=== PATIENT | male | born 1955 | race Caucasian/White ===

== ENCOUNTER 2021-06-01 13:29 | Inpatient (IN) | payer BC ==
--- NOTE | 2021-06-01 13:33 | EDM.PDOC ---
ED HPI GENERAL MEDICAL PROBLEM - General Chief Complaint: Cardiovascular Problem Stated Complaint: PALPITATIONS Time Seen by Provider: 06/01/21 13:33 Source of Information: Reports: Patient History Limitations: Reports: No Limitations - History of Present Illness INITIAL COMMENTS - FREE TEXT/NARRATIVE: 65 YO WM PRESENTS TO ER WITH ELEVATED HEART RATE WHICH WAS FOUND ON EXAM PRIOR TO DENTAL EXTRACTION THIS AM IN [place]. PT WAS SCHEDULED TO SEE A [facility]OLT PROVIDER WHILE IN [place] BUT LEFT WITHOUT BEING SEEN HE STATES HE'S ASYMPTOMATIC. PT DENIES CHEST PAIN, SHORTNESS OF BREATH, NAUSEA/VOMITING, DIAPHORESIS, OR DIZZINESS. PT DENIES FEVER/CHILLS AND STATES HE FEELS GREAT. PT WITH HISTORY OF ELECTROCARDIOVERSION 3 YEARS AGO DUE TO AN ACCELERATED HEART RATE. PT DENIES ANY RATE CONTROLLING MEDICATIONS. PT STATES HE TAKES LISINOPRIL 10MG DAILY FOR BLOOD PRESSURE. Onset: Today Location: Reports: Generalized Improves with: Reports: None Worsens with: Reports: None Associated Symptoms: Reports: No Other Symptoms - Related Data Allergies Allergy/AdvReac Type Severity Reaction Status Date / Time No Known Allergies Allergy Verified 06/01/21 14:09 Home Meds: Home Meds Lisinopril 10 mg PO DAILY 08/14/16 [History] Past Medical History HEENT History: Reports: Hard of Hearing, Impaired Vision, Other (See Below) Other HEENT History: No hearing aide therapy, reading glasses Cardiovascular History: Reports: None, Hypertension. Denies: Afib, Aneurysm, Arrhythmia, Blood Clots/VTE/DVT, CAD, Heart Failure, Heart Murmur, High Cholesterol, PA, PVD, Syncope Respiratory History: Reports: None. Denies: Asthma, COPD, Intubation, Previous, PE, Pneumothorax, Sleep Apnea, TB Gastrointestinal History: Reports: None. Denies: Celiac Disease, Cholelithiasis, Chronic Constipation, Gastritis, GERD, GI Bleed, Hepatitis, Hiatal Hernia, Inflammatory Bowel Disease, Jaundice, Pancreatitis, PUD Genitourinary History: Reports: None. Denies: BPH, Chronic Renal Insuffiency, Renal Calculus, STD, Urinary Incontinence, UTI, Recurrent Musculoskeletal History: Reports: Arthritis, Osteoarthritis. Denies: Amputation, Back Pain, Chronic, Fracture, Gout, Neck Pain, Chronic, RA, SLE Neurological History: Reports: Other (See Below) Other Neuro History: Resting tremor mostly with the left hand Psychiatric History: Reports: None. Denies: Abuse, Victim of, ADD, ADHD, Anxiety, Depression, Panic Attack, Psych Hospitalization(s), PTSD, Suicide Attempt, Suicidal Ideation Endocrine/Metabolic History: Reports: None. Denies: Diabetes, Type I, Diabetes, Type II, Hypothyroidism, IDDM Hematologic History: Reports: None. Denies: Anemia, Blood Transfusion(s), Iron Deficiency Immunologic History: Reports: None. Denies: AIDS, HIV, SLE Oncologic (Cancer) History: Reports: None. Denies: Basal Cell Carcinoma, Hodgkin's Lymphoma, Leukemia, Lymphoma, Malignant Melanoma, Non-Hodgkin's Lymphoma Dermatologic History: Reports: None. Denies: Eczema, Psoriasis - Infectious Disease History Infectious Disease History: Reports: Chicken Pox, Measles, Mumps - Past Surgical History HEENT Surgical History: Reports: Oral Surgery, Other (See Below) Male Surgical History: Reports: Circumcision, Other (See Below) Musculoskeletal Surgical History: Reports: Arthroscopic Knee, Other (See Below) - Past Imaging History Past Imaging History: Reports: MRI (MRI of the left knee in July 2015) Social & Family History - Family History HEENT: Reports: Impaired Vision, Macular Degeneration, Other (See Below) Other HEENT Family History: Mother with macular degeneration Cardiac: Reports: CAD, Heart Murmur, High Cholesterol, Hypertension, PA, Other (See Below) Other Cardiac Family History: Maternal grandmother with fatal PA at age 63, father with fatal unknown type of valvular disease at age 89, mother with hypertension and hyperlipidemia Respiratory: Reports: None. Denies: Asthma, COPD, PE, Pneumothorax, Sleep Apnea GI: Reports: None. Denies: Celiac Disease, Cholelithiasis, Chronic Constipation, Chronic Diarrhea, Colon Polyps, Diverticulitis, GERD, GI bleed, Inflammatory Bowel Disease, Irritable Bowel Syndrome, PUD : Reports: Dialysis, Renal Disease/Insufficiency, Other (See Below) Other Family History: Father with renal insufficiency in his 80s and refused dialysis OBGYN: Reports: Dysfunctional uterine bleeding, Endometriosis, Other (See Below) Other OBGYN Family History: Daughter with hypermenorrhea, Sister with endometriosis Musculoskeletal: Reports: Fibromyalgia. Denies: Arthritis, Gout, Osteoarthri tis, RA, SLE Neurological: Reports: None. Denies: Alzheimers Disease, CVA, Dementia, Parkinson's, Seizure, TIA Psychiatric: Reports: Anxiety, Depression, Other (See Below) Other Psychiatric Family History: Sister with anxiety depression disorder with DIRECTOR [employer] therapy Hematologic: Reports: Anemia, Other (See Below) Other Hematologic Family History: Daughter with iron deficiency anemia secondary to her hypermenorrhea which did require transfusion Immunologic: Reports: None. Denies: AIDS, HIV, Immunosuppression, SLE Dermatologic: Reports: None. Denies: Eczema, Psoriasis Oncologic: Reports: None. Denies: Cervix, Hodgkin's Lymphoma, Leukemia, Lymphoma, Non-Hodgkin's Lymphoma, Prostate, Skin - Caffeine Use Caffeine Use: Reports: Soda (1/3 can of soda 2 times per week). Denies: Coffee, Energy Drinks, Tea - Living Situation & Occupation Living situation: Reports: , with Family Occupation: Employed ED ROS GENERAL - Review of Systems Review Of Systems: See Below Constitutional: Reports: No Symptoms HEENT: Reports: No Symptoms Respiratory: Reports: No Symptoms Cardiovascular: Reports: Blood Pressure Problem. Denies: Chest Pain, Dyspnea on Exertion, Edema, Lightheadedness, Palpitations, Syncope Endocrine: Reports: No Symptoms GI/Abdominal: Reports: No Symptoms : Reports: No Symptoms Musculoskeletal: Reports: No Symptoms Skin: Reports: No Symptoms Neurological: Reports: No Symptoms Psychiatric: Reports: No Symptoms Hematologic/Lymphatic: Reports: No Symptoms Immunologic: Reports: No Symptoms ED EXAM, GENERAL - Physical Exam Exam: See Below Exam Limited By: No Limitations General Appearance: Alert, WD/WN, No Apparent Distress Head: Atraumatic, Normocephalic Neck: Normal Inspection, Supple, Non-Tender, Full Range of Motion Respiratory/Chest: No Respiratory Distress, Lungs Clear, Normal Breath Sounds, No Accessory Muscle Use, Chest Non-Tender Cardiovascular: Normal Peripheral Pulses, Regular Rate, Rhythm, No Edema, No Gallop, No JVD, No Rub, Tachycardia, Systolic Murmur GI/Abdominal: Normal Bowel Sounds, Soft, Non-Tender, No Organomegaly, No Distention, No Abnormal Bruit, No Mass Back Exam: Normal Inspection, Full Range of Motion, NT Extremities: Normal Inspection, Normal Range of Motion, Non-Tender, Normal Capillary Refill, No Pedal Edema Neurological: Alert, Oriented, CN II-XII Intact, Normal Cognition, Normal Gait, Normal Reflexes, No Motor/Sensory Deficits Psychiatric: Normal Affect, Normal Mood Skin Exam: Warm, Dry, Intact, Normal Color, No Rash Lymphatic: No Adenopathy #1 Interpretation EKG Date: 06/01/21 Time: 13:39 Rhythm: NSR Rate (Beats/Min): 146 [place]: LAD-Left [place] Deviation QRS: RBBB QT: Normal #2 Interpretation EKG Date: 06/01/21 Time: 15:34 Rhythm: A-Flutter Rate (Beats/Min): 72 [place]: LAD-Left [place] Deviation QRS: RBBB ST-T: Normal QT: Normal Course - Vital Signs Last Recorded V/S: Last Vital Signs Temp 98.0 F 06/01/21 14:06 Pulse 72 06/01/21 15:47 Resp 16 06/01/21 15:47 BP 118/87 06/01/21 15:47 Pulse Ox 96 06/01/21 15:47 - Orders/Labs/Meds Orders: Active Orders 24 hr Category Date Time Status Cardiac Monitoring [RC] . DIRECTED Care 06/01/21 13:31 Active EKG Documentation Completion [RC] ASDIRECTED Care 06/01/21 13:32 Active EKG Documentation Completion [RC] ASDIRECTED Care 06/01/21 15:48 Active Peripheral IV Care [RC] . DIRECTED Care 06/01/21 13:32 Active Sodium Chloride 0.9% [Saline Flush] Med 06/01/21 13:31 Active 10 ml FLUSH Q8HR PRN Peripheral IV Insertion Adult [OM.PC] Routine Oth 06/01/21 13:31 Ordered EKG 12 Lead [EK] Stat Ther 06/01/21 13:31 Ordered EKG 12 Lead [EK] Stat Ther 06/01/21 15:47 Ordered Medication Orders Sodium Chloride (Sodium Chloride 0.9% 10 Ml Syringe) 10 ml FLUSH Q8HR PRN PRN Reason: keep vein open Labs: Laboratory Tests 06/01/21 06/01/21 06/01/21 Range/Units 13:50 13:50 13:50 WBC 6.63 (5.00-10.00) 10^3/uL RBC 4.80 (4.50-6.00) 10^6/uL Hgb 17.1 H (13.0-17.0) g/dL Hct 49.7 (40.0-52.0) % MCV 103.5 H (82.0-92.0) fL MCH 35.6 H (27.0-31.0) pg MCHC 34.4 (32.0-36.0) g/dL RDW 12.2 (11.5-14.5) % Plt Count 122 L (150-400) 10^3/uL MPV 10.0 (7.4-10.4) fL Immature Gran % (Auto) 0.2 (0.0-5.0) % Neut % (Auto) 74.2 H (50.0-70.0) % Lymph % (Auto) 16.7 L (20.0-40.0) % Nuckolls % (Auto) 8.1 H (2.0-8.0) % Eos % (Auto) 0.3 L (1.0-3.0) % Baso % (Auto) 0.5 (0.0-1.0) % Neut # (Auto) 4.92 (2.50-7.00) 10^3/uL Lymph # (Auto) 1.11 (1.00-4.00) 10^3/uL [place]olls # (Auto) 0.54 (0.10-0.80) 10^3/uL Eos # (Auto) 0.02 L (0.10-0.30) 10^3/uL Baso # (Auto) 0.03 (0.00-0.10) 10^3/uL Immature Gran # (Auto) 0.01 (0.00-0.50) 10^3/uL Sodium 138 (136-145) mmol/L Potassium 4.5 (3.5-5.1) mmol/L Chloride 103 (98-107) mmol/L Carbon Dioxide 23.9 (21.0-32.0) mmol/L Anion Gap 15.6 H (5-15) mmol/L BUN 21 H (7-18) mg/dL Creatinine 0.97 (0.51-1.17) mg/dL Est Cr Clr Drug Dosing 70.98 mL/min Estimated GFR (MDRD) > 60 mL/min Glucose 108 (70-140) mg/dL Lactic Acid (0.4-2.0) mmol/L Calcium 8.4 L (8.7-10.3) mg/dL Magnesium 1.9 (1.8-2.4) mg/dL Total Bilirubin 1.1 H (0.2-1.0) mg/dL AST 21 (15-37) U/L ALT 30 (14-63) U/L Alkaline Phosphatase 59 (46-116) U/L Creatine Kinase 77 (26-276) U/L CK-MB (CK-2) 1.61 (0.00-3.60) ng/mL Troponin I High Sens 6.200 (0-76.000) pg/mL B-Natriuretic Peptide 157 H (0-100) pg/mL Total Protein 7.7 (6.4-8.2) g/dL Albumin 3.73 (3.40-5.00) g/dL 06/01/21 Range/Units 13:50 WBC (5.00-10.00) 10^3/uL RBC (4.50-6.00) 10^6/uL Hgb (13.0-17.0) g/dL Hct (40.0-52.0) % MCV (82.0-92.0) fL MCH (27.0-31.0) pg MCHC (32.0-36.0) g/dL RDW (11.5-14.5) % Plt Count (150-400) 10^3/uL MPV (7.4-10.4) fL Immature Gran % (Auto) (0.0-5.0) % Neut % (Auto) (50.0-70.0) % Lymph % (Auto) (20.0-40.0) % [place]olls % (Auto) (2.0-8.0) % Eos % (Auto) (1.0-3.0) % Baso % (Auto) (0.0-1.0) % Neut # (Auto) (2.50-7.00) 10^3/uL Lymph # (Auto) (1.00-4.00) 10^3/uL [place]olls # (Auto) (0.10-0.80) 10^3/uL Eos # (Auto) (0.10-0.30) 10^3/uL Baso # (Auto) (0.00-0.10) 10^3/uL Immature Gran # (Auto) (0.00-0.50) 10^3/uL Sodium (136-145) mmol/L Potassium (3.5-5.1) mmol/L Chloride (98-107) mmol/L Carbon Dioxide (21.0-32.0) mmol/L Anion Gap (5-15) mmol/L BUN (7-18) mg/dL Creatinine (0.51-1.17) mg/dL Est Cr Clr Drug Dosing mL/min Estimated GFR (MDRD) mL/min Glucose (70-140) mg/dL Lactic Acid 0.9 (0.4-2.0) mmol/L Calcium (8.7-10.3) mg/dL Magnesium (1.8-2.4) mg/dL Total Bilirubin (0.2-1.0) mg/dL AST (15-37) U/L ALT (14-63) U/L Alkaline Phosphatase (46-116) U/L Creatine Kinase (26-276) U/L CK-MB (CK-2) (0.00-3.60) ng/mL Troponin I High Sens (0-76.000) pg/mL B-Natriuretic Peptide (0-100) pg/mL Total Protein (6.4-8.2) g/dL Albumin (3.40-5.00) g/dL Meds: Medications Generic Name Dose Route Start Last Admin Trade Name Freq PRN Reason Stop Dose Admin Sodium Chloride 10 ml 06/01/21 13:31 Sodium Chloride 0.9% 10 Ml Syringe FLUSH Q8HR PRN keep vein open Discontinued Medications Generic Name Dose Route Start Last Admin Trade Name Freq PRN Reason Stop Dose Admin Diltiazem HCl 20 mg 06/01/21 15:09 06/01/21 15:23 Diltiazem 25 Mg/5 Ml Sdv IVPUSH 06/01/21 15:10 20 mg ONETIME ONE Administration Sodium Chloride 1,000 mls @ 999 mls/hr 06/01/21 13:47 06/01/21 14:05 Normal Saline IV 06/01/21 14:47 999 mls/hr .BOLUS ONE Administration Metoprolol Tartrate 5 mg 06/01/21 14:31 06/01/21 14:52 Metoprolol Tartrate 5 Mg/5 Ml Sdv IVPUSH 06/01/21 14:32 5 mg ONETIME ONE Administration - Radiology Interpretation Free Text/Narrative:: CXR-NAD Departure - Departure Time of Disposition: 15:54 Disposition: Admitted As Inpatient 66 Clinical Impression: Tachycardia with heart rate 141-160 beats per minute, Atrial flutter with controlled response Hypertension Qualifiers: Hypertension type: unspecified Qualified Code(s): I10 - Essential (primary) hypertension Referrals: Emili Blas MD [Primary Care Provider] - Forms: ED Department Discharge Sepsis Event Note (ED) - Focused Exam Vital Signs: Vital Signs Temp Pulse Pulse Resp BP BP Pulse Ox 06/01/21 15:47 72 16 118/87 96 06/01/21 15:31 72 12 119/86 97 06/01/21 15:26 142 H 14 144/112 H 95 06/01/21 14:59 143 H 18 150/126 H 97 06/01/21 14:52 145 H 155/121 H 06/01/21 14:50 144 H 16 160/127 H 96 06/01/21 14:15 147 H 14 154/122 H 96 06/01/21 14:06 98.0 F 149 H 12 170/125 H 100 - My Orders Last 24 Hours: My Active Orders 06/01/21 13:31 Cardiac Monitoring [RC] . DIRECTED Sodium Chloride 0.9% [Saline Flush] 10 ml FLUSH Q8HR PRN Peripheral IV Insertion Adult [OM.PC] Routine EKG 12 Lead [EK] Stat 06/01/21 13:32 EKG Documentation Completion [RC] ASDIRECTED Peripheral IV Care [RC] . DIRECTED 06/01/21 15:47 EKG 12 Lead [EK] Stat 06/01/21 15:48 EKG Documentation Completion [RC] ASDIRECTED - Assessment/Plan Last 24 Hours: My Active Orders 06/01/21 13:31 Cardiac Monitoring [RC] . DIRECTED Sodium Chloride 0.9% [Saline Flush] 10 ml FLUSH Q8HR PRN Peripheral IV Insertion Adult [OM.PC] Routine EKG 12 Lead [EK] Stat 06/01/21 13:32 EKG Documentation Completion [RC] ASDIRECTED Peripheral IV Care [RC] . DIRECTED 06/01/21 15:47 EKG 12 Lead [EK] Stat 06/01/21 15:48 EKG Documentation Completion [RC] ASDIRECTED Assessment:: 1. ASYMPTOMATIC SINUS TACHYCARDIA/ATRIAL FLUTTER 2. ACCELERATED HYPERTENSION-IMPROVED AFTER CARDIZEM Plan: 1. ADMIT TO MEDICINE- [facility] ACCEPTING @4030 2. SUPPORTIVE CARE 3. TELEMETRY
[2021-06-01] MEDS ORDERED: Sodium Chloride 0.9% 1,000 ML IV ONE (13:47)
--- NOTE | 2021-06-01 13:59 | CR ---
[id number] RAD/RAD Chest PA or AP 1V EXAM: RAD Chest PA or AP 1V INDICATION: CHEST PAIN. COMPARISON: None. DISCUSSION/IMPRESSION: Cardiomediastinal silhouette is normal in size and contour. Lungs are clear. No pleural effusion or pneumothorax. Adan Escoto MD 06/01/21 [id number] Thank you for allowing us to participate in the care of your patient.
[2021-06-01] MEDS ORDERED: Metoprolol Tartrate 5 MG/5 ML SDV IVPUSH ONE ×3 (14:31→20:08)
[2021-06-01 14:32] LABS: ANION GAP 15.6 mmol/L (5-15); CHLORIDE,CL 103 mmol/L (98-107); SODIUM,NA 138 mmol/L (136-145)
[2021-06-01] MEDS ORDERED: Diltiazem 25 MG/5 ML SDV IVPUSH ONE (15:09)
--- NOTE | 2021-06-01 20:14 | PCM.HP.2 ---
H&P History of Present Illness - General Date of Service: 06/01/21 Admit Problem/Dx: Admission Diagnosis/Problem Admission Diagnosis/Problem Atrial flutter with rapid ventricular response Source of Information: Patient - History of Present Illness Initial Comments - Free Text/Narative: 65 year old male admitted from the ED for asymptomatic atrial flutter with RVR. Patient had been to the dentist for a tooth extraction and was noted to have tachycardia. His tooth was pulled and then he was told to go to the ED in [place]. Patient reports his phone and he forgot the directions and came back home and then to the ED in [place]. He denies CP, SOB, edema or light headedness. - Related Data Allergies/Adverse Reactions: Allergies Allergy/AdvReac Type Severity Reaction Status Date / Time No Known Allergies Allergy Verified 06/01/21 14:09 Home Medications: Home Meds Lisinopril 10 mg PO DAILY 08/14/16 [History] Past Medical History HEENT History: Reports: Hard of Hearing, Impaired Vision, Other (See Below) Other HEENT History: No hearing aide therapy, reading glasses Cardiovascular History: Reports: None, Hypertension Respiratory History: Reports: None Gastrointestinal History: Reports: None Genitourinary History: Reports: None Musculoskeletal History: Reports: Arthritis, Osteoarthritis Neurological History: Reports: Other (See Below) Other Neuro History: Resting tremor mostly with the left hand Psychiatric History: Reports: None Endocrine/Metabolic History: Reports: None Hematologic History: Reports: None Immunologic History: Reports: None Oncologic (Cancer) History: Reports: None Dermatologic History: Reports: None - Infectious Disease History Infectious Disease History: Reports: Chicken Pox, Measles, Mumps, Shingles - Past Surgical History Head Surgeries/Procedures: Reports: None HEENT Surgical History: Reports: Oral Surgery, Other (See Below) Other HEENT Surgeries/Procedures: Extractions of teeth 06/01/21 Cardiovascular Surgical History: Reports: None Respiratory Surgical History: Reports: None GI Surgical History: Reports: None Male Surgical History: Reports: Circumcision, Other (See Below) Other Male Surgeries/Procedures: Circumcision as an infant Endocrine Surgical History: Reports: None Musculoskeletal Surgical History: Reports: Arthroscopic Knee, Other (See Below) Other Musculoskeletal Surgeries/Procedures:: Meniscal repair of the left knee on 02/08/16 Oncologic Surgical History: Reports: None Dermatological Surgical History: Reports: None - Past Imaging History Past Imaging History: Reports: MRI (MRI of the left knee in July 2015) Social & Family History - Family History HEENT: Reports: Impaired Vision, Macular Degeneration, Other (See Below) Other HEENT Family History: Mother with macular degeneration Cardiac: Reports: CAD, Heart Murmur, High Cholesterol, Hypertension, [place], Other (See Below) Other Cardiac Family History: Maternal grandmother with fatal TX at age 63, father with fatal unknown type of valvular disease at age 89, mother with hypertension and hyperlipidemia Respiratory: Reports: None GI: Reports: None : Reports: Dialysis, Renal Disease/Insufficiency, Other (See Below) Other Family History: Father with renal insufficiency in his 80s and refused dialysis OBGYN: Reports: Dysfunctional uterine bleeding, Endometriosis, Other (See Below) Other OBGYN Family History: Daughter with hypermenorrhea, Sister with endometriosis Musculoskeletal: Reports: Fibromyalgia Neurological: Reports: None Psychiatric: Reports: Anxiety, Depression, Other (See Below) Other Psychiatric Family History: Sister with anxiety depression disorder with HEATING AND VENTILATING DRAFTER therapy Hematologic: Reports: Anemia, Other (See Below) Other Hematologic Family History: Daughter with iron deficiency anemia secondary to her hypermenorrhea which did require transfusion Immunologic: Reports: None Dermatologic: Reports: None Oncologic: Reports: None - Tobacco Use Tobacco Use Status *Q: Current Status Unknown - Caffeine Use Caffeine Use: Reports: None - Alcohol Use Days Per Week of Alcohol Use: 1 Number of Drinks Per Day: 3 Total Drinks Per Week: 3 - Recreational Drug Use Recreational Drug Use: No - Living Situation & Occupation Living situation: Reports: , with Family Occupation: Employed H&P Review of Systems - Review of Systems: Review Of Systems: See Below General: Denies: Fever, Chills, Weakness, Fatigue, Decreased Appetite HEENT: Reports: Glasses. Denies: Dysphasia, Headaches, Sinus Congestion, Sore Throat Pulmonary: Denies: Shortness of Breath, Wheezing, Cough Cardiovascular: Denies: Chest Pain, Palpitations, Edema Gastrointestinal: Denies: Abdominal Pain, Black Stool, Bloody Stool, Constipation, Diarrhea, Nausea, Vomiting Genitourinary: Denies: Dysuria, Frequency, Urgency, Hematuria Musculoskeletal: Denies: Shoulder Pain, Back Pain, Joint Swelling Skin: Denies: Bruising, Rash, Wound Psychiatric: Denies: Confusion, Depression, Anxiety Neurological: Denies: Confusion, Headache, Numbness, Tingling, Trouble Speaking, Difficulty Walking Exam - Exam Exam: See Below - Vital Signs Vital Signs: Last Vital Signs Temp 36.6 C 06/01/21 19:00 Pulse 133 H 06/01/21 19:00 Resp 20 06/01/21 19:00 BP 182/125 H 06/01/21 19:00 Pulse Ox 94 L 06/01/21 19:00 Weight: 135.76 kg - Exam Physical Exam Comments:: GENERAL: Well-appearing adult in no acute distress. HEENT: Normocephalic, atraumatic. Conjunctiva clear. Nares patent without discharge. Mucous membranes moist, posterior pharynx unremarkable. NECK: Supple, no masses. CV: Irregular tachycardic rate and rhythm, no murmurs, rubs, or gallops. 2+ radial pulses. PULMONARY: Normal effort, clear to auscultation bilaterally, no wheezes, rales, or rhonchi. ABDOMEN: Positive bowel sounds, soft, nontender, nondistended. EXTREMITIES: Trace bilateral lower extremity edema, no cyanosis or clubbing. MUSCULOSKELETAL: Moves all extremities well. NEUROLOGICAL: No obvious deficits. DERMATOLOGIC: No rashes or suspicious lesions in exposed areas. PSYCHIATRIC: Alert, interactive, appropriate affect. - Patient Data Lab Results Last 24 hrs: Laboratory Results - last 24 hr 06/01/21 06/01/21 06/01/21 Range/Units 13:50 13:50 13:50 WBC 6.63 (5.00-10.00) 10^3/uL RBC 4.80 (4.50-6.00) 10^6/uL Hgb 17.1 H (13.0-17.0) g/dL Hct 49.7 (40.0-52.0) % MCV 103.5 H (82.0-92.0) fL MCH 35.6 H (27.0-31.0) pg MCHC 34.4 (32.0-36.0) g/dL RDW 12.2 (11.5-14.5) % Plt Count 122 L (150-400) 10^3/uL MPV 10.0 (7.4-10.4) fL Immature Gran % (Auto) 0.2 (0.0-5.0) % Neut % (Auto) 74.2 H (50.0-70.0) % Lymph % (Auto) 16.7 L (20.0-40.0) % [place] % (Auto) 8.1 H (2.0-8.0) % Eos % (Auto) 0.3 L (1.0-3.0) % Baso % (Auto) 0.5 (0.0-1.0) % Neut # (Auto) 4.92 (2.50-7.00) 10^3/uL Lymph # (Auto) 1.11 (1.00-4.00) 10^3/uL [place] # (Auto) 0.54 (0.10-0.80) 10^3/uL Eos # (Auto) 0.02 L (0.10-0.30) 10^3/uL Baso # (Auto) 0.03 (0.00-0.10) 10^3/uL Immature Gran # (Auto) 0.01 (0.00-0.50) 10^3/uL Sodium 138 (136-145) mmol/L Potassium 4.5 (3.5-5.1) mmol/L Chloride 103 (98-107) mmol/L Carbon Dioxide 23.9 (21.0-32.0) mmol/L Anion Gap 15.6 H (5-15) mmol/L BUN 21 H (7-18) mg/dL Creatinine 0.97 (0.51-1.17) mg/dL Est Cr Clr Drug Dosing 70.98 mL/min Estimated GFR (MDRD) > 60 mL/min Glucose 108 (70-140) mg/dL Lactic Acid (0.4-2.0) mmol/L Calcium 8.4 L (8.7-10.3) mg/dL Magnesium 1.9 (1.8-2.4) mg/dL Total Bilirubin 1.1 H (0.2-1.0) mg/dL AST 21 (15-37) U/L ALT 30 (14-63) U/L Alkaline Phosphatase 59 (46-116) U/L Creatine Kinase 77 (26-276) U/L CK-MB (CK-2) 1.61 (0.00-3.60) ng/mL Troponin I High Sens 6.200 (0-76.000) pg/mL B-Natriuretic Peptide 157 H (0-100) pg/mL Total Protein 7.7 (6.4-8.2) g/dL Albumin 3.73 (3.40-5.00) g/dL SARS CoV-2 RNA Rapid NADEEN (NEGATIVE) 06/01/21 06/01/21 Range/Units 13:50 16:30 WBC (5.00-10.00) 10^3/uL RBC (4.50-6.00) 10^6/uL Hgb (13.0-17.0) g/dL Hct (40.0-52.0) % MCV (82.0-92.0) fL MCH (27.0-31.0) pg MCHC (32.0-36.0) g/dL RDW (11.5-14.5) % Plt Count (150-400) 10^3/uL MPV (7.4-10.4) fL Immature Gran % (Auto) (0.0-5.0) % Neut % (Auto) (50.0-70.0) % Lymph % (Auto) (20.0-40.0) % [place] % (Auto) (2.0-8.0) % Eos % (Auto) (1.0-3.0) % Baso % (Auto) (0.0-1.0) % Neut # (Auto) (2.50-7.00) 10^3/uL Lymph # (Auto) (1.00-4.00) 10^3/uL [place] # (Auto) (0.10-0.80) 10^3/uL Eos # (Auto) (0.10-0.30) 10^3/uL Baso # (Auto) (0.00-0.10) 10^3/uL Immature Gran # (Auto) (0.00-0.50) 10^3/uL Sodium (136-145) mmol/L Potassium (3.5-5.1) mmol/L Chloride (98-107) mmol/L Carbon Dioxide (21.0-32.0) mmol/L Anion Gap (5-15) mmol/L BUN (7-18) mg/dL Creatinine (0.51-1.17) mg/dL Est Cr Clr Drug Dosing mL/min Estimated GFR (MDRD) mL/min Glucose (70-140) mg/dL Lactic Acid 0.9 (0.4-2.0) mmol/L Calcium (8.7-10.3) mg/dL Magnesium (1.8-2.4) mg/dL Total Bilirubin (0.2-1.0) mg/dL AST (15-37) U/L ALT (14-63) U/L Alkaline Phosphatase (46-116) U/L Creatine Kinase (26-276) U/L CK-MB (CK-2) (0.00-3.60) ng/mL Troponin I High Sens (0-76.000) pg/mL B-Natriuretic Peptide (0-100) pg/mL Total Protein (6.4-8.2) g/dL Albumin (3.40-5.00) g/dL SARS CoV-2 RNA Rapid NADEEN Negative (NEGATIVE) Result Diagrams: 06/01/21 13:50 06/01/21 13:50 Sepsis Event Note - Evaluation Sepsis Screening Result: No Definite Risk - Focused Exam Vital Signs: Vital Signs Temp Pulse Pulse Resp BP BP Pulse Ox 06/01/21 19:00 36.6 C 133 H 20 182/125 H 94 L 06/01/21 15:59 36.6 C 73 20 123/92 H 95 06/01/21 15:47 72 16 118/87 96 06/01/21 15:31 72 12 119/86 97 06/01/21 15:26 142 H 14 144/112 H 95 06/01/21 14:59 143 H 18 150/126 H 97 06/01/21 14:52 145 H 155/121 H 06/01/21 14:50 144 H 16 160/127 H 96 06/01/21 14:15 147 H 14 154/122 H 96 06/01/21 14:06 36.7 C 149 H 12 170/125 H 100 Pulse Ox 06/01/21 19:00 06/01/21 15:59 96 06/01/21 15:47 06/01/21 15:31 06/01/21 15:26 06/01/21 14:59 06/01/21 14:52 06/01/21 14:50 06/01/21 14:15 06/01/21 14:06 Problem List Initiated/Reviewed/Updated: Yes Orders Last 24hrs: Active Orders 24 hr Category Date Time Status Admission Status [Patient Status] [ADT] Routine ADT 06/01/21 15:56 Active Cardiac Monitoring [RC] 07,11,15,19,23,03 Care 06/01/21 16:00 Active Oxygen Therapy [RC] PRN Care 06/01/21 15:59 Active Telemetry Monitoring [Cardiac Monitoring] [RC] . Care 06/01/21 17:05 Active DIRECTED Up ad Shelley [RC] ASDIRECTED Care 06/01/21 15:59 Active VTE/DVT Education [RC] PER UNIT ROUTINE Care 06/01/21 15:59 Active Vital Signs [RC] Q4H Care 06/01/21 15:59 Active Heart Healthy Diet [DIET] Diet 06/01/21 Dinner Active Peripheral IV Insertion Adult [OM.PC] Routine Oth 06/01/21 13:31 Ordered Resuscitation Status Routine Resus Stat 06/01/21 15:59 Ordered EKG 12 Lead [EK] Stat Ther 06/01/21 13:31 Stop Req EKG 12 Lead [EK] Stat Ther 06/01/21 15:47 Stop Req Assessment/Plan Comment:: HPI summary: 65 year old male admitted from the ED for asymptomatic atrial flutter with RVR. Patient had been to the dentist for a tooth extraction and was noted to have tachycardia. His tooth was pulled and then he was told to go to the ED in [place]. Patient reports his phone and he forgot the directions and came back home and then to the ED in [place]. He denies CP, SOB, edema or light headedness. ED course: VS: T98, P 149, R 12, BP 170/125, O2 100%/RA EKG: Tachycardia, rate 146, left axis deviation with right bundle branch block; recheck after meds was aflutter with rate 72 Lab: Hgb 17.1, Hct 49.7, Na 138, K 4.5, BUN 21, creatinine 0.97, GFR >60, mag 1.9, Trop 6.2, lactic 0.9, BNP 157 Meds: diltaizem 20mg IVP x 1 and lopressor 5mg IVP x 1 CXR: Lungs clear, heart size normal Hospital course: 06/01/2021: Admitted to floor with atrial flutter with controlled rate of 72 initially. Upon evening rounds patient noted to have tachycardia returning with rate in the 120s. Patient asymptomatic. [facility] records reviewed revealing ECHO showing EF of 40% in 2016, which has not been re-evaluated since that time. Patient had a similar episode in 2016 at which time he required cardioversion. He had gone off of his medications including anticoagulation that were prescribed in 2016. Diltazem not repeated due to reduced EF. Call placed to [facility] with hospitalist acceptance as it was agreed he will likely need repeat cardioversion due to hx. Lopressor 5mg Iv x 2 doses given per recommendations of hospitalist and patient transferred to [facility] in [place] via EMS. Hospitalization problems and plan: #Atrial flutter with RVR - continue ASA - transfer to [facility] in [place] after total of three doses of IV Lopressor #HFrEF, ECHO 2016 EF 40% #Hypertension - continue lisinopril Chronic, stable conditions: #Erythrocytosis Hospitalization details: # FEN: Saline lock, electrolytes stable, soft diet due to recent tooth extraction # PPX: on ASA # Code status: Full # Emergency contact: , updated by patient # Disposition: [facility] for admission and possible cardioversion - Mortality Measure Prognosis:: Good
--- NOTE | 2021-06-01 20:37 | PCM.DCSUM1 ---
Discharge Summary - Hospital Course Free Text/Narrative:: Date of admission: 06/01/2021 Date of discharge: 06/01/2021 Admission diagnoses: #Atrial flutter with RVR #HFrEF, ECHO 2016 EF 40% #Hypertension Discharge diagnoses: #Atrial flutter with RVR #HFrEF, ECHO 2016 EF 40% #Hypertension #Erythrocytosis Consultations: none Procedures: none Hospital course: HPI summary: 65 year old male admitted from the ED for asymptomatic atrial flutter with RVR. Patient had been to the dentist for a tooth extraction and was noted to have tachycardia. His tooth was pulled and then he was told to go to the ED in [place]. Patient reports his phone and he forgot the directions and came back home and then to the ED in [place]. He denies CP, SOB, edema or light headedness. ED course: VS: T98, P 149, R 12, BP 170/125, O2 100%/RA EKG: Tachycardia, rate 146, left axis deviation with right bundle branch block; recheck after meds was aflutter with rate 72 Lab: Hgb 17.1, Hct 49.7, Na 138, K 4.5, BUN 21, creatinine 0.97, GFR >60, mag 1.9, Trop 6.2, lactic 0.9, BNP 157 Meds: diltaizem 20mg IVP x 1 and lopressor 5mg IVP x 1 CXR: Lungs clear, heart size normal Hospital course: 06/01/2021: Admitted to floor with atrial flutter with controlled rate of 72 initially. Upon evening rounds patient noted to have tachycardia returning with rate in the 120s. Patient asymptomatic. [place] records reviewed revealing ECHO showing EF of 40% in 2016, which has not been re-evaluated since that time. Patient had a similar episode in 2016 at which time he required cardioversion. He had gone off of his medications including anticoagulation that were prescribed in 2016. Diltazem not repeated due to reduced EF. Call placed to [facility] with hospitalist acceptance as it was agreed he will likely need repeat cardioversion due to hx. Lopressor 5mg Iv x 2 doses given per recommendations of hospitalist and patient transferred to [facility] in [place] via EMS. Discharge and follow-up recommendations: - Discharge to [facility] for possible cardioversion - New medications at discharge: N/A - Follow-up post hospitalization - Discharge Data Discharge Date: 06/01/21 Discharge Disposition: DC/Tfer to Acute Hospital 02 Condition: Good - Referral to Home Health Primary Care Physician: Emili Blas MD - Discharge Plan *PRESCRIPTION DRUG MONITORING PROGRAM REVIEWED*: Not Applicable *COPY OF PRESCRIPTION DRUG MONITORING REPORT IN PATIENT DILSHAD: Not Applicable Home Medications: Home Meds Lisinopril 10 mg PO DAILY 08/14/16 [History] Referrals: Emili Blas MD [Primary Care Provider] - - Discharge Summary/Plan Comment DC Time >30 min.: Yes - General Info Date of Service: 06/01/21 - Review of Systems General: Denies: Fever, Weakness, Fatigue, Chills HEENT: Reports: Glasses. Denies: Headaches, Sinus Congestion, Sore Throat, Visual Changes Pulmonary: Denies: Shortness of Breath, Cough, Wheezing Cardiovascular: Denies: Chest Pain, Palpitations, Edema, Lightheadedness Gastrointestinal: Denies: Abdominal Pain, Constipation, Decreased Appetite, Diarrhea, Melena, Nausea, Vomiting Genitourinary: Denies: Dysuria, Urgency, Hematuria Musculoskeletal: Denies: Shoulder Pain, Back Pain, Leg Pain Skin: Denies: Dryness, Bruising, Rash Neurological: Denies: Confusion, Headache, Numbness, Tingling, Trouble Speaking, Difficulty Walking, Weakness Psychiatric: Denies: Confusion, Depression, Anxiety - Patient Data Vitals - Most Recent: Last Vital Signs Temp 36.6 C 06/01/21 19:00 Pulse 149 H 06/01/21 20:12 Resp 20 06/01/21 19:00 BP 163/131 H 06/01/21 20:12 Pulse Ox 94 L 06/01/21 19:00 Weight - Most Recent: 135.76 kg Lab Results - Last 24 hrs: Laboratory Results - last 24 hr 06/01/21 06/01/21 06/01/21 Range/Units 13:50 13:50 13:50 WBC 6.63 (5.00-10.00) 10^3/uL RBC 4.80 (4.50-6.00) 10^6/uL Hgb 17.1 H (13.0-17.0) g/dL Hct 49.7 (40.0-52.0) % MCV 103.5 H (82.0-92.0) fL MCH 35.6 H (27.0-31.0) pg MCHC 34.4 (32.0-36.0) g/dL RDW 12.2 (11.5-14.5) % Plt Count 122 L (150-400) 10^3/uL MPV 10.0 (7.4-10.4) fL Immature Gran % (Auto) 0.2 (0.0-5.0) % Neut % (Auto) 74.2 H (50.0-70.0) % Lymph % (Auto) 16.7 L (20.0-40.0) % [place] % (Auto) 8.1 H (2.0-8.0) % Eos % (Auto) 0.3 L (1.0-3.0) % Baso % (Auto) 0.5 (0.0-1.0) % Neut # (Auto) 4.92 (2.50-7.00) 10^3/uL Lymph # (Auto) 1.11 (1.00-4.00) 10^3/uL [place] # (Auto) 0.54 (0.10-0.80) 10^3/uL Eos # (Auto) 0.02 L (0.10-0.30) 10^3/uL Baso # (Auto) 0.03 (0.00-0.10) 10^3/uL Immature Gran # (Auto) 0.01 (0.00-0.50) 10^3/uL Sodium 138 (136-145) mmol/L Potassium 4.5 (3.5-5.1) mmol/L Chloride 103 (98-107) mmol/L Carbon Dioxide 23.9 (21.0-32.0) mmol/L Anion Gap 15.6 H (5-15) mmol/L BUN 21 H (7-18) mg/dL Creatinine 0.97 (0.51-1.17) mg/dL Est Cr Clr Drug Dosing 70.98 mL/min Estimated GFR (MDRD) > 60 mL/min Glucose 108 (70-140) mg/dL Lactic Acid (0.4-2.0) mmol/L Calcium 8.4 L (8.7-10.3) mg/dL Magnesium 1.9 (1.8-2.4) mg/dL Total Bilirubin 1.1 H (0.2-1.0) mg/dL AST 21 (15-37) U/L ALT 30 (14-63) U/L Alkaline Phosphatase 59 (46-116) U/L Creatine Kinase 77 (26-276) U/L CK-MB (CK-2) 1.61 (0.00-3.60) ng/mL Troponin I High Sens 6.200 (0-76.000) pg/mL B-Natriuretic Peptide 157 H (0-100) pg/mL Total Protein 7.7 (6.4-8.2) g/dL Albumin 3.73 (3.40-5.00) g/dL SARS CoV-2 RNA Rapid NADEEN (NEGATIVE) 06/01/21 06/01/21 Range/Units 13:50 16:30 WBC (5.00-10.00) 10^3/uL RBC (4.50-6.00) 10^6/uL Hgb (13.0-17.0) g/dL Hct (40.0-52.0) % MCV (82.0-92.0) fL MCH (27.0-31.0) pg MCHC (32.0-36.0) g/dL RDW (11.5-14.5) % Plt Count (150-400) 10^3/uL MPV (7.4-10.4) fL Immature Gran % (Auto) (0.0-5.0) % Neut % (Auto) (50.0-70.0) % Lymph % (Auto) (20.0-40.0) % [place] % (Auto) (2.0-8.0) % Eos % (Auto) (1.0-3.0) % Baso % (Auto) (0.0-1.0) % Neut # (Auto) (2.50-7.00) 10^3/uL Lymph # (Auto) (1.00-4.00) 10^3/uL [place] # (Auto) (0.10-0.80) 10^3/uL Eos # (Auto) (0.10-0.30) 10^3/uL Baso # (Auto) (0.00-0.10) 10^3/uL Immature Gran # (Auto) (0.00-0.50) 10^3/uL Sodium (136-145) mmol/L Potassium (3.5-5.1) mmol/L Chloride (98-107) mmol/L Carbon Dioxide (21.0-32.0) mmol/L Anion Gap (5-15) mmol/L BUN (7-18) mg/dL Creatinine (0.51-1.17) mg/dL Est Cr Clr Drug Dosing mL/min Estimated GFR (MDRD) mL/min Glucose (70-140) mg/dL Lactic Acid 0.9 (0.4-2.0) mmol/L Calcium (8.7-10.3) mg/dL Magnesium (1.8-2.4) mg/dL Total Bilirubin (0.2-1.0) mg/dL AST (15-37) U/L ALT (14-63) U/L Alkaline Phosphatase (46-116) U/L Creatine Kinase (26-276) U/L CK-MB (CK-2) (0.00-3.60) ng/mL Troponin I High Sens (0-76.000) pg/mL B-Natriuretic Peptide (0-100) pg/mL Total Protein (6.4-8.2) g/dL Albumin (3.40-5.00) g/dL SARS CoV-2 RNA Rapid NADEEN Negative (NEGATIVE) Med Orders - Current: Current Medications Discontinued Medications Diltiazem HCl (Diltiazem 25 Mg/5 Ml Sdv) 20 mg IVPUSH ONETIME ONE Stop: 06/01/21 15:10 Last Admin: 06/01/21 15:23 Dose: 20 mg Documented by: Sodium Chloride (Normal Saline) 1,000 mls @ 999 mls/hr IV .BOLUS ONE Stop: 06/01/21 14:47 Last Admin: 06/01/21 14:05 Dose: 999 mls/hr Documented by: Metoprolol Tartrate (Metoprolol Tartrate 5 Mg/5 Ml Sdv) 5 mg IVPUSH ONETIME ONE Stop: 06/01/21 14:32 Last Admin: 06/01/21 14:52 Dose: 5 mg Documented by: Metoprolol Tartrate (Metoprolol Tartrate 5 Mg/5 Ml Sdv) 5 mg IVPUSH ONETIME ONE Stop: 06/01/21 20:04 Last Admin: 06/01/21 20:12 Dose: 5 mg Documented by: Metoprolol Tartrate (Metoprolol Tartrate 5 Mg/5 Ml Sdv) 5 mg IVPUSH ONETIME ONE Stop: 06/01/21 20:09 Sodium Chloride (Sodium Chloride 0.9% 10 Ml Syringe) 10 ml FLUSH Q8HR PRN PRN Reason: keep vein open - Exam Physical Findings Comments:: GENERAL: Well-appearing adult in no acute distress. HEENT: Normocephalic, atraumatic. Conjunctiva clear. Nares patent without discharge. Mucous membranes moist, posterior pharynx unremarkable. NECK: Supple, no masses. CV: Irregular tachycardic rate and rhythm, no murmurs, rubs, or gallops. 2+ radial pulses. PULMONARY: Normal effort, clear to auscultation bilaterally, no wheezes, rales, or rhonchi. ABDOMEN: Positive bowel sounds, soft, nontender, nondistended. EXTREMITIES: Trace bilateral lower extremity edema, no cyanosis or clubbing. MUSCULOSKELETAL: Moves all extremities well. NEUROLOGICAL: No obvious deficits. DERMATOLOGIC: No rashes or suspicious lesions in exposed areas. PSYCHIATRIC: Alert, interactive, appropriate affect.
[2021-06-01] MEDS: Sodium Chloride 0.9% 10 ML Syringe FLUSH PRN ×2 (20:41→20:43)
[2021-06-01 20:48] VITALS: PULSE 126
[2021-06-01 20:53] VITALS: BP 144/112
== END 2021-06-01 20:40 | DRG 201 ==
LOC: KA.ED 13:29 → KA.MS 15:56
PROVIDERS: ADMIT Physician Assistant Medical; ATTEND Nurse Practitioner Family
DX: I48.92 Unspecified atrial flutter (principal); I11.0 Hypertensive heart disease with heart failure; D75.1 Secondary polycythemia; Z20.822 Contact with and (suspected) exposure to COVID-19; H91.90 Unspecified hearing loss, unspecified ear; H54.7 Unspecified visual loss; M19.90 Unspecified osteoarthritis, unspecified site; Z79.01 Long term (current) use of anticoagulants; Z79.899 Other long term (current) drug therapy; Z86.19 Personal history of other infectious and parasitic diseases; Z98.890 Other specified postprocedural states; I50.22 Chronic systolic (congestive) heart failure
CPT/HCPCS: 36415; 71045; 80053; 82550; 82553; 83605; 83735; 83880; 84484; 85025; 93005; 96374; 96375; 99284; 99285-25; J3490; J7030; U0002